=== PATIENT | male | born 1990 | race Caucasian/White ===

== ENCOUNTER 2017-12-29 00:26 | Emergency (ER) | payer OTHER ==
[~2017-12-29] VITALS: Ht 185.4 cm; Wt 93.0 kg
[~2017-12-29 00:26] MED LIST: PERPHENAZINE8 MG PO; PROAIR HFA0.09 MG/Ac INH; PROAIR HFA8.5 GM INH; ROBITUSSIN COU1 EACH PO; VICODIN5-300 PO
[2017-12-29 00:34] VITALS: BP 139/72
--- NOTE | 2017-12-29 01:49 | RADIOLOGY REPORT ---
EXAMINATION: XR ANKLE, RIGHT XR FOOT, RIGHT CLINICAL INFORMATION: Pain and swelling COMPARISON: None TECHNIQUE: 2 views of the right foot. 3 views of the right ankle. FINDINGS: Right ankle: No fracture or dislocation. The ankle mortise is congruent. There is mild medial soft tissue swelling. No ankle joint effusion. Right foot: The 2 submitted images are somewhat limited without a full AP view. This limits evaluation of the proximal metatarsals. No definite evidence of acute fracture or malalignment. The soft tissues are unremarkable. Joint spaces appear maintained throughout the phalanges. IMPRESSION: No acute fracture or malalignment is visualized. Of note, evaluation of the proximal metatarsals is limited on these provided views.
--- NOTE | 2017-12-29 01:52 | ED UPPER/LOWER EXTREMITY COMPL ---
History of Present Illness General Chief Complaint: Foot or Ankle Injury Stated Complaint: RIGHT FOOT PAIN AND SWOLLEN Source: patient Exam Limitations: no limitations Vital Signs & Intake/Output Vital Signs & Intake/Output Vital Signs Date Time Temp Pulse Resp B/P B/P Pulse O2 O2 Flow FiO2 Mean Ox Delivery Rate 12/29 0034 96.5 94 16 139/72 99 Room Air Allergies Coded Allergies: Penicillins (UNKNOWN 12/29/17) Reconcile Medications Albuterol Sulfate (Proair Hfa) 0.09 MG/Actuation YENNY 2 PUFF INH PRN ASTHMA ( Reported) Albuterol Sulfate (Proair Hfa) 90 MCG HFA.AER.AD 2 INH INH Q6P PRN ASTHMA Cephalexin (Keflex) 500 MG CAPSULE 1 CAP PO 4 TIMES/DAY INFECTION Guaifenesin/Dextromethorphan (Robitussin Rethv-Sjhhh-Jwad Dm) 200 MG-10 MG CAPSULE 1 CAP PO Q6 PRN COUGH/COLD SYMPTOMS HYDROCODONE/ACETAMINOPHEN (Hydrocodon-Acetaminophen 5-325) 5 MG-325 MG TABLET 1 TAB PO Q4-6HR PRN PAIN Ibuprofen 800 MG TABLET 1 TAB PO TID PRN PAIN Oxycodone HCl/Acetaminophen (Percocet 5-325 MG Tablet) 5 MG-325 MG TABLET 1 TAB PO 4XDP PRN PAIN SIX...[id number] Perphenazine 8 MG TABLET 1 TAB PO BID SCHIZOPHRENIA Sulfamethoxazole/Trimethoprim (Bactrim Ds Tablet) 800 MG-160 MG TABLET 1 TAB PO BID INFECTION Triage Note: PT REPORTS HE WAS AT WORK TODAY AND HE STEPPED ON A NAIL. PT REPORTS THE NAIL WENT THROUGH HIS WORK BOOT AND INTO THE BOTTOM OF HIS FOOT. SWELLING NOTED TO FOOT. NO ACTIVE BLEEDING. PT REPORTS TAKING TYLENOL AT HOME WITH NO RELIEF. Triage Nurses Notes Reviewed? yes Onset: Gradual Duration: hour(s): Severity: moderate Pain/Injury Location: Right: Foot. Method of Injury: "I stepped on a nail" Modifying Factors: Improves With: rest. Worsens With: movement. Associated Symptoms: swelling HPI: 27 yo gentleman stepped on a dirty nail which penetrated his boot and went into the plantar aspect of his foot 12 hours ago. "[place].... I went to the ER but they wouldn't see me because I [place]... and so I came here." He notes pain with ambulation and mild swelling. No signficant redness or streaking or fever. He is otherwise well. Past History Travel History Traveled to [place] past 21 day No Medical History Any Pertinent Medical History? 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 No Review of Systems Review of Systems Constitutional: Reports: no symptoms. EENTM: Reports: no symptoms. Respiratory: Reports: no symptoms. Cardiovascular: Reports: no symptoms. Gastrointestinal/Abdominal: Reports: no symptoms. Genitourinary: Reports: no symptoms. Musculoskeletal: Reports: no symptoms. Skin: Reports: no symptoms. Neurological/Psychological: Reports: no symptoms. Hematologic/Endocrine: Reports: no symptoms. Immunological: Reports: no symptoms. All Other Systems: Reviewed and Negative Physical Exam Physical Exam General Appearance: well developed/nourished, mild distress Head: atraumatic Eyes: Bilateral: PERRL, EOMI. Ears, Nose, Throat: normal pharynx, normal ENT inspection, hearing grossly normal Neck: normal inspection, supple Cardiovascular/Respiratory: regular rate/rhythm Back: normal inspection Foot Right: punctate lesion on distal plantar aspect of foot, no drainage, erythema, mild tenderness to palpation. No lymphangitic streaking. No joint involvement. Skin: intact, normal color, warm/dry Lymphatic: no anterior cervical willard Progress Differential Diagnosis: infection vs puncture wound vs other. Plan of Care: Orders Procedure Date/time Status Durable Medical Equipment 12/29 0248 Active Diagnostic Imaging: Viewed by Me: Radiology Read. Discussed w/RAD: Radiology Read. Radiology Impression: PATIENT: PRINCE JEFFERY PRESENT AGE: 27 PATIENT ACCOUNT NO: [id number] : 90 LOCATION: [facility] ORDERING PHYSICIAN: Jayden Francis MD SERVICE DATE: 12/29/17-0045 EXAM TYPE: RAD - XRY-ANKLE 3 OR MORE VIEWS R; XRY-FOOT COMPLETE, R EXAMINATION: XR ANKLE, RIGHT XR FOOT, RIGHT CLINICAL INFORMATION: Pain and swelling COMPARISON: None TECHNIQUE: 2 views of the right foot. 3 views of the right ankle. FINDINGS: Right ankle: No fracture or dislocation. The ankle mortise is congruent. There is mild medial soft tissue swelling. No ankle joint effusion. Right foot: The 2 submitted images are somewhat limited without a full AP view. This limits evaluation of the proximal metatarsals. No definite evidence of acute fracture or malalignment. The soft tissues are unremarkable. Joint spaces appear maintained throughout the phalanges. IMPRESSION: No acute fracture or malalignment is visualized. Of note, evaluation of the proximal metatarsals is limited on these provided views. DICTATED BY: Lindsay WARNER,Umberto DATE/TIME DICTATED:12/29/17142 COOK BOAT:ANNA DATE/TIME TRANSCRIBED:142 CONFIDENTIAL, DO NOT COPY WITHOUT APPROPRIATE AUTHORIZATION. < Electronically signed in Other Vendor System> SIGNED BY: Lindsay WARNER, Umberto 12/29/17 014 Departure Departure Disposition: HOME OR SELF CARE Condition: Stable Clinical Impression Primary Impression: Puncture wound Referrals: Patient Has No Primary Care Dr (PCP/Family) Departure Forms: Customer Survey General Discharge Information Prescriptions: Current Visit Scripts Ibuprofen 1 TAB PO TID PRN PAIN #60 TAB Oxycodone HCl/Acetaminophen (Percocet 5-325 MG Tablet) 1 TAB PO 4XDP PRN PAIN #6 TAB SIX...[id number] Sulfamethoxazole/Trimethoprim (Bactrim Ds Tablet) 1 TAB PO BID #20 TAB Cephalexin (Keflex) 1 CAP PO 4 TIMES/DAY #40 CAP Comments pt given bactrim/keflex x 10 days... encouraged follow up in 1-2 days for check up.
[2017-12-29] MEDS ORDERED: BACTRIM DS TAB1 EACH PO (02:31)
[2017-12-29] MEDS ORDERED: PERCOCET 5-3251 EACH PO (02:31)
[2017-12-29] MEDS ORDERED: KEFLEX500 M1 PO (02:31)
[2017-12-29] MEDS ORDERED: IBUPROFEN800 M1 PO (02:31)
== END 2017-12-29 02:57 ==
LOC: ERH 00:26
DX: S91.331A Puncture wound without foreign body, right foot, initial encounter (principal); W45.0XXA Nail entering through skin, initial encounter; Y93.01 Activity, walking, marching and hiking; Y92.9 Unspecified place or not applicable
CPT/HCPCS: 73610-RT; 73630-RT; 90471; 90714

== ENCOUNTER 2018-01-29 21:50 | Emergency (ER) | payer OTHER ==
[~2018-01-29] VITALS: Ht 185.4 cm; Wt 93.0 kg
[~2018-01-29 21:50] MED LIST changes: +BACTRIM DS TAB1 EACH PO; +IBUPROFEN800 M1 PO; +KEFLEX500 M1 PO; +PERCOCET 5-3251 EACH PO
[2018-01-29 21:57] VITALS: BP 116/74
--- NOTE | 2018-01-29 22:22 | ED INFLUENZA/URI COMPLAINT ---
History of Present Illness General Chief Complaint: Dizziness Stated Complaint: DIZZY/NAUSEA Source: patient Exam Limitations: no limitations Vital Signs & Intake/Output Vital Signs & Intake/Output Vital Signs Date Time Temp Pulse Resp B/P B/P Pulse O2 O2 Flow FiO2 Mean Ox Delivery Rate 01/29 2234 97 Room Air 01/297 97.2 90 20 116/74 95 Allergies Coded Allergies: Penicillins (UNKNOWN 12/29/17) Reconcile Medications Albuterol Sulfate (Proair Hfa) 0.09 MG/Actuation YENNY 2 PUFF INH PRN ASTHMA ( Reported) Albuterol Sulfate (Proair Hfa) 90 MCG HFA.AER.AD 2 INH INH Q6P PRN ASTHMA Cephalexin (Keflex) 500 MG CAPSULE 1 CAP PO 4 TIMES/DAY INFECTION Guaifenesin/Dextromethorphan (Robitussin Vaqkc-Ldrae-Plml Dm) 200 MG-10 MG CAPSULE 1 CAP PO Q6 PRN COUGH/COLD SYMPTOMS HYDROCODONE/ACETAMINOPHEN (Hydrocodon-Acetaminophen 5-325) 5 MG-325 MG TABLET 1 TAB PO Q4-6HR PRN PAIN Ibuprofen 800 MG TABLET 1 TAB PO TID PRN PAIN Oxycodone HCl/Acetaminophen (Percocet 5-325 MG Tablet) 5 MG-325 MG TABLET 1 TAB PO 4XDP PRN PAIN SIX...[id number] Perphenazine 8 MG TABLET 1 TAB PO BID SCHIZOPHRENIA Sulfamethoxazole/Trimethoprim (Bactrim Ds Tablet) 800 MG-160 MG TABLET 1 TAB PO BID INFECTION Triage Note: PT REPORTS" I DONT FEEL WELL AT ALL". PT REPORTS HEADACHE, THROAT PAIN, FEVERS AND CHILLS. PT REPORTS "FEELING ACHY ALLOVER". Triage Nurses Notes Reviewed? yes HPI: 27M no PMH with 2 days of worsening malaise, fatigue, myalgia, sore throat, headache, nausea. Symptoms started yesterday afternoon, no sick contacts, worsened today. [place] weak all day, syncopized earlier at home, was helped up by neighbors, no head strike, no post-ictal or incontinence. Walking well here, appears energetic and cooperative. Eating and drinking well. Had an episode of loose stool earlier. Denies neck stiffness, photophobia, chest pain, SOB, abdominal pain. Has dry cough worse with deep inspiration. (Marcell WARNER,Ruchi) Past History Travel History Traveled to [place] past 21 day No Medical History Any Pertinent Medical History? 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 No (Ruchi Faith MD) Review of Systems Review of Systems Constitutional: Reports: no symptoms. EENTM: Reports: no symptoms. Respiratory: Reports: no symptoms. Cardiovascular: Reports: no symptoms. GI: Reports: no symptoms. Genitourinary: Reports: no symptoms. Musculoskeletal: Reports: no symptoms. Skin: Reports: no symptoms. Neurological/Psychological: Reports: no symptoms. Hematologic/Endocrine: Reports: no symptoms. Immunologic/Allergic: Reports: no symptoms. All Other Systems: Reviewed and Negative (Ruchi Faith MD) Physical Exam Physical Exam General Appearance: well developed/nourished, no apparent distress Head: atraumatic, normal appearance Eyes: Bilateral: normal appearance. Ears, Nose, Throat: normal ENT inspection, moist mucous membrane, hearing grossly normal, Tympanic normal, pharynx normal Neck: normal inspection, supple, full range of motion Respiratory: normal breath sounds, chest non-tender, no respiratory distress Cardiovascular: regular rate/rhythm Gastrointestinal: soft, non-tender Back: normal inspection, normal range of motion Extremities: normal inspection, normal range of motion Neurologic/Psych: awake, alert, oriented x 3, normal mood/affect Skin: intact, normal color, warm/dry Core Measures Sepsis Present: No Sepsis Focused Exam Completed? No (Ruchi Faith MD) Physical Exam Peripheral Pulses: 4+ carotid (R), 4+ carotid (L) Reflexes: 2+: bicep (R), bicep (L). Lymphatic: adenopathy (Devon Khoury MD) Progress Differential Diagnosis: influenza, meningitis, neutropenia, otitis, pneumonia, pharyngitis, sinusitis Plan of Care: Orders Procedure Date/time Status TROPONIN LEVEL 01/29 2219 Complete COMPREHENSIVE METABOLIC PANEL 03/31 2219 Complete CBC WITHOUT DIFFERENTIAL 01/29 2219 Complete EKG 01/29 2219 Active RAPID VIRAL INFLUENZA A 01/29 2201 Complete THROAT CULTURE W/QUICK STREP 01/29 2201 Active Laboratory Tests 01/29/182223: Anion Gap 10, Estimated GFR > 60, BUN/Creatinine Ratio 9.1, Glucose 106 H, Calcium 9.5, Total Bilirubin 0.7, AST 22, ALT 31, Alkaline Phosphatase 35, Troponin I < 0.01, Total Protein 6.9, Albumin 4.4, Globulin 2.5, Albumin/ Globulin Ratio 1.8, CBC w Diff NO MAN DIFF REQ, RBC 4.99, MCV 83.0, MCH 28.1, MCHC 33.8, RDW 13.2, MPV 7.9, Gran % 72.2, Lymphocytes % 15.8 L, Monocytes % 9.7 H, Eosinophils % 1.8, Basophils % 0.5, Absolute Granulocytes 6.8 H, Absolute Lymphocytes 1.5, Absolute Monocytes 0.9 H, Absolute Eosinophils 0.2, Absolute Basophils 0 Microbiology 01/29 2203 NASOPHARYN: Influenza Virus A & B Rapid Smear - COMP EKG normal, labs normal. Likely viral syndrome with vasovagal syncope earlier, low suspicion for cardiac disease. Initial ED EKG: normal sinus rhythm, no ST T wave changes Prior EKG: unchanged (Ruchi Faith MD) Departure Departure Condition: Stable Clinical Impression Primary Impression: Viral syndrome Secondary Impressions: Vasovagal syncope Referrals: Patient Has No Primary Care Dr (PCP/Family) Additional Instructions: Follow up with your PCP. Stay well hydrated. You can take Tylenol or Ibuprofen for muscle pains or fevers. Return to ER if any new or worsening symptoms. Departure Forms: Customer Survey General Discharge Information (Ruchi Faith MD) Departure Time of Disposition: 2318 Disposition: HOME OR SELF CARE (Devon Khoury MD)
[2018-01-29 22:29] LABS: ABSOLUTE BASOPHIL COUNT 0 /CUMM (0.0-0.2); ABSOLUTE EOSINOPHIL COUNT 0.2 /CUMM (0.0-0.7); ABSOLUTE GRANULOCYTE CT 6.8 /CUMM (1.4-6.5); ABSOLUTE LYMPH COUNT 1.5 /CUMM (1.2-3.4); ABSOLUTE MONOCYTE COUNT 0.9 /CUMM (0.10-0.60); BASOPHIL % 0.5 % (0.0-2.0); EOSINOPHIL % 1.8 % (0-5); GRANULOCYTE % 72.2 % (42.2-75.2); HEMATOCRIT 41.5 % (42-52); MEAN CORPUSCULAR HGB 28.1 PG (27.0-31.0); MEAN CORPUSCULAR HGB CONC 33.8 G/DL (33.0-37.0); MEAN PLATELET VOLUME 7.9 FL (7.4-10.4); PLATELET COUNT 272 /CUMM (130-400); RBC DISTRIBUTION WIDTH 13.2 % (11.5-14.5); RED BLOOD CELL CT 4.99 /CUMM (4.70-6.10); WHITE BLOOD CELL COUNT 9.4 /CUMM (4.8-10.8)
== END 2018-01-29 23:26 ==
LOC: ERH 21:50
PROVIDERS: Internal Medicine
DX: R55 Syncope and collapse (principal); B34.9 Viral infection, unspecified
CPT/HCPCS: 87804; 87804-59; 93005; 93010

== ENCOUNTER 2018-02-01 21:42 | Emergency (ER) | payer OTHER ==
[~2018-02-01] VITALS: Ht 185.4 cm; Wt 93.0 kg
[2018-02-01 22:10] LABS: ABSOLUTE BASOPHIL COUNT 0 /CUMM (0.0-0.2); ABSOLUTE EOSINOPHIL COUNT 0.2 /CUMM (0.0-0.7); ABSOLUTE GRANULOCYTE CT 5.7 /CUMM (1.4-6.5); ABSOLUTE LYMPH COUNT 2.5 /CUMM (1.2-3.4); ABSOLUTE MONOCYTE COUNT 0.7 /CUMM (0.10-0.60); BASOPHIL % 0.4 % (0.0-2.0); EOSINOPHIL % 2.3 % (0-5); GRANULOCYTE % 62.4 % (42.2-75.2); HEMATOCRIT 43.6 % (42-52); MEAN CORPUSCULAR HGB 27.5 PG (27.0-31.0); MEAN CORPUSCULAR HGB CONC 32.8 G/DL (33.0-37.0); MEAN CORPUSCULAR VOLUME 83.8 FL (80.0-94.0); MEAN PLATELET VOLUME 7.9 FL (7.4-10.4); PLATELET COUNT 335 /CUMM (130-400); RBC DISTRIBUTION WIDTH 13.4 % (11.5-14.5); RED BLOOD CELL CT 5.21 /CUMM (4.70-6.10); WHITE BLOOD CELL COUNT 9.2 /CUMM (4.8-10.8)
--- NOTE | 2018-02-01 23:38 | ED AMS/SEIZURE/WEAK/DIZZY ---
History of Present Illness General Chief Complaint: Syncope and Near-Syncope Stated Complaint: SEEN HERE FOR VIRAL INFECTION WEDNESDAY,SYNCOPE PERPT Source: patient Exam Limitations: no limitations Vital Signs & Intake/Output Vital Signs & Intake/Output Vital Signs Date Time Temp Pulse Resp B/P B/P Pulse O2 O2 Flow FiO2 Mean Ox Delivery Rate 02/01 2154 98.3 82 20 129/80 97 Room Air ED Intake and Output 02/02 0000 02/01 1200 Intake Total Output Total Balance Patient 205 lb Weight Allergies Coded Allergies: Penicillins (UNKNOWN 12/29/17) Reconcile Medications Butalb/Acetaminophen/Caffeine (Esgic Capsule) 50 MG-325 MG-40 MG CAPSULE 1 CAP PO Q6H PRN HEADACHE Triage Note: PT TO ED C/O "PASSING OUT" TWICE TODAY. STATES STOOD UP WHILE GETTING OUT OF BED AND I WENT RIGHT BACK DOWN INTO BED" STATES REMEMBERS FALLING. SECOND TIME WAS WHILE WALKING MID DAY TODAY, AND "I FELT LIGHT HEADED AND DIZZY" "I FELL TO THE GROUND" STATES REMEMBERS FALLING. DENIES HEAD STRIKE. PT ARRIVES TO ED EATING POP TARTS AND DRINKING ICED COFFEE. PT IS REQUESTING BLOOD TEST FOR ASBESTOS EXPOSURE. ALSO HAS BEEN HAVING HEADACHES. WAS SEEN HERE A WEEK AGO AND HAD BEEN PASSING OUT PRIOR TO THAT VISIT TOO. STATES IS ALSO CONCERNED ABOUT A HEREDITARY CONDITION INVOLVING BLEEDING IN THE BRAIN "OR BRAIN OVERLAPPING THE SKULL OR SOME CRAP LIKE THAT" Triage Nurses Notes Reviewed? yes Onset: Abrupt Duration: week(s): (1-2), changing over time, intermittent Timing: multiple episodes today Injury Environment: home Severity: mild, moderate Severity Numbers: 7 No Modifying Factors: none HPI: 27-year-old male past medical history of asthma presents for reevaluation of episodes of dizziness presyncope lightheadedness congestion and rhinorrhea and sinus pressure. Patient states that over the past 1-2 weeks he's had multiple episodes where he feels like he'll pass out. He was seen in the ED about a week ago and was diagnosed with a viral syndrome. He states since then he has had 2 more episodes where he feels like he is given a passout. This happens when he stands up getting out of bed he summoned feels lightheaded dizzy he never actually loses consciousness. He's never fallen or hit in his head. No chest pain or shortness of breath. No fever. Patient also reports he's been having severe headaches over the past year intermittently. Pain is located on the left side of the frontal area of his head does not radiate described as intense pressure. He is not taking any medicine for this. No neck pain no rashes. No changes in vision. (Charly Mcnally) Past History Travel History Traveled to [place] past 21 day No Medical History Any Pertinent Medical History? 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 No (Charly Mcnally) Review of Systems Review of Systems Constitutional: Reports: no symptoms. EENTM: Reports: no symptoms. Respiratory: Reports: no symptoms. Cardiovascular: Reports: no symptoms. GI: Reports: no symptoms. Genitourinary: Reports: no symptoms. Musculoskeletal: Reports: no symptoms. Skin: Reports: no symptoms. Neurological/Psychological: Reports: see HPI (DIZZY, PRESYNCOPE. ). Hematologic/Endocrine: Reports: no symptoms. Immunologic/Allergic: Reports: no symptoms. All Other Systems: Reviewed and Negative (Charly Mcnally) Physical Exam Physical Exam General Appearance: well developed/nourished, no apparent distress, alert, awake Head: atraumatic, normal appearance Eyes: Bilateral: normal appearance, PERRL, EOMI. Ears, Nose, Throat: normal pharynx, hearing grossly normal, nasal congestion, moist mucus membranes Neck: normal inspection, supple, full range of motion Respiratory: normal breath sounds, chest non-tender, no respiratory distress, lungs clear Cardiovascular: regular rate/rhythm, normal peripheral pulses Peripheral Pulses: 2+ radial (R), 2+ radial (L) Gastrointestinal: soft, non-tender Back: normal inspection, normal range of motion Extremities: normal range of motion Neurologic/Psych: no motor/sensory deficits, awake, alert, oriented x 3, normal gait, filler picker II-XII nml as tested, NEGATIVE rOMBERG, NORMAL FINGER TO NOSE Skin: intact, normal color, warm/dry Core Measures ACS in differential dx? No CVA/TIA Diagnosis No Sepsis Present: No Sepsis Focused Exam Completed? No (Acosta CEJA,Charly) Progress Differential Diagnosis: arrythmia, anemia, benign positional vertigo, dehydration Plan of Care: Orders Procedure Date/time Status EKG 02/02 2332 Active URINE DRUG SCREEN FOR ER ONLY 02/01 2200 Complete COMPREHENSIVE METABOLIC PANEL 02/01 2200 Complete CBC WITHOUT DIFFERENTIAL 02/01 2200 Complete Current Medications Sig/Vel Start time Last Medication Dose Stop Time Status Admin Ibuprofen 800 MG ONCE ONE 02/01 2345 UNVr 02/01 (Motrin) 02/01 2346 233 Laboratory Tests 02/01/182203: Urine Opiates Screen < 100, Methadone Screen < 40, Barbiturate Screen < 60, Ur Phencyclidine Scrn < 6.00, Amphetamines Screen < 100, U Benzodiazepines Scrn < 85, Urine Cocaine Screen < 50, Urine Cannabis Screen < 5.00 02/01/182202: Anion Gap 13, Estimated GFR > 60, BUN/Creatinine Ratio 15.5, Glucose 117 H, Calcium 9.8, Total Bilirubin 0.5, AST 22, ALT 36, Alkaline Phosphatase 34, Total Protein 7.3, Albumin 4.4, Globulin 2.9, Albumin/Globulin Ratio 1.5, CBC w Diff NO MAN DIFF REQ, RBC 5.21, MCV 83.8, MCH 27.5, MCHC 32.8 L, RDW 13.4, MPV 7.9, Gran % 62.4, Lymphocytes % 27.4, Monocytes % 7.5, Eosinophils % 2.3, Basophils % 0.4, Absolute Granulocytes 5.7, Absolute Lymphocytes 2.5, Absolute Monocytes 0.7 H, Absolute Eosinophils 0.2, Absolute Basophils 0 Patient seen and evaluated. He is reporting episodes of presyncope headache congestion and rhinorrhea. He was seen here a week ago workup was negative. Patient was given a dose of ibuprofen for headache and reports complete resolution on reevaluation. Basic blood work was obtained and is within normal limits. CT scan of the brain is negative. Patient is not orthostatic vital signs are stable he is nontoxic-appearing. EKG is stable. Patient will be instructed to follow-up with primary care doctor and referred to neurology for further evaluation. Discussed return precautions in detail patient agrees the plan. Diagnostic Imaging: Viewed by Me: CT Scan. Discussed w/RAD: CT Scan. Radiology Impression: PATIENT: PRINCE JEFFERY PRESENT AGE: 27 PATIENT ACCOUNT NO: [id number] : 90 LOCATION: [facility] ORDERING PHYSICIAN: Charly CEJA SERVICE DATE: 02/01/18 EXAM TYPE: CAT - CT HEAD WO IV CONTRAST EXAMINATION: CT HEAD WITHOUT CONTRAST CLINICAL INFORMATION: Headache. Dizziness. COMPARISON: None. TECHNIQUE: Contiguous axial images of the brain were obtained without IV contrast. DLP: 700 mGy-cm. FINDINGS : There are no pathologic extra-axial fluid collections. The lateral, third, fourth ventricles are nondilated and concordant with the appearance of the sulci. There is no evidence for acute intraparenchymal hemorrhage or infarct. There is neither mass nor mass effect. There is no shift of midline structures. There is marked bilateral maxillary sinus mucosal thickening along with patchy ethmoid sinus opacification. The mastoid air cells are clear. There are no osseous lesions. IMPRESSION: No evidence for acute intracranial injury. Paranasal sinus disease as stated above. DICTATED BY: Brennan Kathleen MD DATE/ TIME DICTATED:02/01/182356 CHANGE ATTENDANT:ANNA DATE/TIME TRANSCRIBED: 02/01/182356 CONFIDENTIAL, DO NOT COPY WITHOUT APPROPRIATE AUTHORIZATION. Initial ED EKG: normal sinus rhythm, no ST T wave changes (Charly Mcnally) Departure Departure Disposition: HOME OR SELF CARE Condition: Stable Clinical Impression Primary Impression: Dizziness Referrals: Bassam Garcia MD. Patient Has No Primary Care Dr (PCP/Family) Additional Instructions: Rest, drink plenty of fluids. Tylenol or ibuprofen for pain. esgic for headaches. Make a follow-up with your primary care doctor and provided neurologist Dr. Garcia as soon as possible. Monitor your symptoms return with any concerns. Departure Forms: Customer Survey General Discharge Information Prescriptions: Current Visit Scripts Butalb/Acetaminophen/Caffeine (Esgic Capsule) 1 CAP PO Q6H PRN HEADACHE #30 CAP (Charly Mcnally) PA/UNDER SHERIFF Co-Sign Statement Statement: ED Attending supervision documentation- [] I saw and evaluated the patient. I have also reviewed all the pertinent lab results and diagnostic results. I agree with the findings and the plan of care as documented in the PA's/UNDER SHERIFF's documentation. [x] I have reviewed the ED Record and agree with the PA's/UNDER SHERIFF's documentation. [] Additions or exceptions (if any) to the PAs/UNDER SHERIFF's note and plan are summarized below: [] (Marcus Wise DO)
--- NOTE | 2018-02-02 00:03 | CT SCAN REPORT ---
EXAMINATION: CT HEAD WITHOUT CONTRAST CLINICAL INFORMATION: Headache. Dizziness. COMPARISON: None. TECHNIQUE: Contiguous axial images of the brain were obtained without IV contrast. DLP: 700 mGy-cm. FINDINGS: There are no pathologic extra-axial fluid collections. The lateral, third, fourth ventricles are nondilated and concordant with the appearance of the sulci. There is no evidence for acute intraparenchymal hemorrhage or infarct. There is neither mass nor mass effect. There is no shift of midline structures. There is marked bilateral maxillary sinus mucosal thickening along with patchy ethmoid sinus opacification. The mastoid air cells are clear. There are no osseous lesions. IMPRESSION: No evidence for acute intracranial injury. Paranasal sinus disease as stated above.
[2018-02-02 00:15] VITALS: BP 126/80
[2018-02-02] MEDS ORDERED: ESGIC CAPSULE1 EACH PO (00:28)
== END 2018-02-02 00:36 ==
LOC: ERH 21:42
PROVIDERS: Physician Assistant Medical
DX: R42 Dizziness and giddiness (principal)
CPT/HCPCS: 80307; 93005; 93010

== ENCOUNTER 2018-02-06 02:55 | Emergency (ER) | payer OTHER ==
[~2018-02-06] VITALS: Ht 185.4 cm; Wt 93.0 kg
[~2018-02-06 02:55] MED LIST changes: +ESGIC CAPSULE1 EACH PO
[2018-02-06 03:15] VITALS: BP 122/72
--- NOTE | 2018-02-06 03:28 | ED ANKLE/FOOT INJURY COMPLAINT ---
History of Present Illness General Chief Complaint: Foot or Ankle Injury Stated Complaint: LEFT ANKLE PAIN Source: patient, old records Exam Limitations: no limitations Vital Signs & Intake/Output Vital Signs & Intake/Output Vital Signs Date Time Temp Pulse Resp B/P B/P Pulse O2 O2 Flow FiO2 Mean Ox Delivery Rate 02/06 0315 98.0 83 20 122/72 99 Allergies Coded Allergies: Penicillins (UNKNOWN 12/29/17) Reconcile Medications Butalb/Acetaminophen/Caffeine (Esgic Capsule) 50 MG-325 MG-40 MG CAPSULE 1 CAP PO Q6H PRN HEADACHE Triage Note: PER PT TWISTED L FOOT THIS AFTERNOON, TYLENOL AND MOTRIN WITHOUT EFFECT LAST DOSE 2200 Triage Nurses Notes Reviewed? yes Occurred: this afternoon Duration: hour(s):, constant, continues in ED Timing: recent history Severity: moderate Pain/Injury Location: Left: Ankle. Method of Injury: sports injury, twisted Modifying Factors: Improves With: rest. Worsens With: movement. Associated Symptoms: swelling, GCS 15 since, stiffness HPI: The afternoon prior to admission patient was playing basketball and twisted his left ankle. He complains of limited range of motion worsening pain with ambulation swelling. He denies other injury fever chills nausea vomiting diarrhea abdominal pain chest pain shortness breath headache dysuria rash bleeding. He's had previous injury to the left ankle. Past History Travel History Traveled to [place] past 21 day No Medical History Any Pertinent Medical History? see below for history Neurological: NONE EENT: NONE Cardiovascular: NONE Respiratory: asthma Gastrointestinal: NONE Hepatic: NONE Renal: NONE Musculoskeletal: NONE Psychiatric: NONE Endocrine: NONE Blood Disorders: NONE Cancer(s): NONE [employer] ATTENDANT/Reproductive: NONE Tetanus Vaccine: 12/29/17 Surgical History Surgical History: non-contributory Psychosocial History What is your primary language Malagasy Tobacco Use: Never used Family History Hx Contributory? No Review of Systems Review of Systems Constitutional: Reports: no symptoms. EENTM: Reports: no symptoms. Respiratory: Reports: no symptoms. Cardiovascular: Reports: no symptoms. GI: Reports: no symptoms. Genitourinary: Reports: no symptoms. Musculoskeletal: Reports: see HPI, joint pain, joint swelling. Skin: Reports: no symptoms. Neurological/Psychological: Reports: no symptoms. Hematologic/Endocrine: Reports: no symptoms. Immunologic/Allergic: Reports: no symptoms. All Other Systems: Reviewed and Negative Physical Exam Physical Exam General Appearance: well developed/nourished, alert, awake, anxious, mild distress Head: atraumatic, normal appearance Eyes: Bilateral: normal appearance, PERRL, EOMI. Ears, Nose, Throat: normal pharynx, normal ENT inspection, hearing grossly normal Neck: normal inspection, supple, full range of motion Cardiovascular/Respiratory: normal breath sounds, normal peripheral pulses, regular rate/rhythm, no respiratory distress Back: normal inspection, normal range of motion Leg/Knee/Thigh Left: normal range of motion, normal inspection Leg/Knee/Thigh Right: normal range of motion, normal inspection Ankle Left: normal inspection, soft tissue tenderness, swelling, limited range of motion Ankle Right: normal inspection, normal range of motion Foot Left: normal inspection, normal range of motion Foot Right: normal inspection, normal range of motion Reflexes: 2+: knee (R), knee (L). Neuro/Vascular: normal motor function, normal sensation Tendon: normal tendon function Psychiatric: awake, alert, oriented x 3 Skin: intact, normal color, warm/dry Progress Differential Diagnosis: fracture, sprain, contusion Plan of Care: Orders Procedure Date/time Status Durable Medical Equipment 02/07 432 Active Current Medications Sig/Vel Start time Last Medication Dose Stop Time Status Admin Tramadol HCl 50 MG ONCE ONE 02/06 445 UNVr (Ultram) 02/06 446 Diagnostic Imaging: Viewed by Me: Radiology Read. Discussed w/RAD: Radiology Read. Radiology Impression: no fracture, no dislocation Departure Departure Time of Disposition: 427 Disposition: HOME OR SELF CARE Condition: Stable Clinical Impression Primary Impression: Left ankle sprain Referrals: Patient Has No Primary Care Dr (PCP/Family) Departure Forms: Customer Survey General Discharge Information Prescriptions: Current Visit Scripts Tramadol HCl (Ultram) 1-2 TAB PO Q6PRN PRN severe pain #30 TAB
--- NOTE | 2018-02-06 04:26 | RADIOLOGY REPORT ---
EXAMINATION: XR ANKLE, LEFT XR FOOT, LEFT CLINICAL INFORMATION: Pain after twisting. COMPARISON: None TECHNIQUE: 3 views of the left ankle. 3 views of the left foot. FINDINGS: Left ankle: No fracture or dislocation. The ankle mortise is congruent. The soft tissues are unremarkable. No joint effusion at the ankle. Left foot: No fracture or dislocation. Alignment is anatomic. Joint spaces are maintained. The soft tissues are unremarkable. IMPRESSION: No fracture or malalignment of the left ankle or foot.
[2018-02-06] MEDS ORDERED: ULTRAM50 M1 PO (04:33)
== END 2018-02-06 04:44 ==
LOC: ERH 02:55
DX: S93.402A Sprain of unspecified ligament of left ankle, initial encounter (principal); X58.XXXA Exposure to other specified factors, initial encounter; Y93.67 Activity, basketball; Y92.9 Unspecified place or not applicable
CPT/HCPCS: 73610-LT; 73630-LT